=== PATIENT | female | born 1955 | race Caucasian/White ===

== ENCOUNTER 2018-09-04 12:29 | Observation (INO) | payer BC ==
[2018-09-04] VITALS (288 sets, daily range): BP systolic 155–157; BP diastolic 81–97; PULSE 84–88; TEMP 98.9–99.5; O2SAT 95–99
[~2018-09-04] VITALS: Ht 165.1 cm; Wt 59.7 kg
[~2018-09-04 12:29] MED LIST: ASPIRIN 32325 MG/TAB PO; ASPIRIN 81M81 MG/TA2 PO; CLARINEX 5MG5 MG PO; EPA FISH OIL1 SGL PO; FOSAMAX5 MG PO; INDERAL 10MG10 MG PO; MICROZIDE12.5 MG PO; MOTRIN 200200 MG/TAB PO; OSCAL 500 TAB500 MG PO; SYNTHROID0.05 MG/TA PO; TIAZAC120 MG PO; TOPROL XL 50MG50 MG PO; VASOTEC 10M10 MG/TAB PO; VITAMIN D31000 I1 PO; XYZAL5 MG PO; ZESTRIL 10MG10 MG PO
[2018-09-04 13:07] LABS: BASO % 0.1 % (0.0-2.0); EOS # 0.2 (0.0-0.7); EOS % 1.6 % (0-4.0); GRAN # 7.2 (1.4-6.5); GRAN % 67.3 % (42.2-75.2); HEMATOCRIT 38.6 % (37.0-47.0); HEMOGLOBIN 13.2 g/dl (12.5-16.0); LYMPH # 2.5 (1.2-3.4); LYMPH % 23.8 % (20.0-51.0); MEAN CELL VOLUME 94 fl (80.0-100.0); MEAN CORPUSCULAR HEMOGLOBIN 32 pg (27.0-31.0); MEAN CORPUSCULAR HGB CONC 34 g/dl (33.0-37.0); MONO # 0.7 (0.1-0.6); MONO % 6.7 % (1.7-9.3); PLATELET COUNT 307 K/mm3 (130-400)
[2018-09-04 13:11] LABS: PROTHROMBIN TIME 10.9 SECONDS (9.7-12.8)
[2018-09-04 13:16] LABS: ALANINE AMINOTRANSFERASE 44 U/L (9-52); ALBUMIN 4.4 gm/dL (3.5-5.0); ALKALINE PHOSPHATASE 109 U/L (50-136); ANION GAP 13 mmol/L (7-16); AST,SGOT 40 U/L (15-37); BILIRUBIN,TOTAL 0.4 mg/dL (0.0-1.0); BLOOD UREA NITROGEN 11 mg/dL (7-17); CALCIUM 9.6 mg/dL (8.4-10.2); CARBON DIOXIDE 30 mmol/L (22-30); CHLORIDE 98 mmol/L (98-107); CREATININE, serum 0.76 mg/dL (0.52-1.25); GLUCOSE 134 mg/dL (74-106); POTASSIUM 3.9 mmol/L (3.4-5.0); SODIUM 141 mmol/L (137-145); TOTAL PROTEIN 8.5 gm/dL (6.4-8.2)
[2018-09-04 13:29] LABS: TROPONIN-I < 0.012 ng/mL (0.000-0.034)
[2018-09-04] MEDS ORDERED: COZAAR100 MG PO (13:31)
[2018-09-04] MEDS ORDERED: MUCINEX 60600 MG/TA1 PO (13:35)
[2018-09-04 13:50] LABS: ACETAMINOPHEN < 10 ug/mL (10-30); ALCOHOL(ethanol),MEDICAL < 10 mg/dL; SALICYLATE < 1.0 mg/dL
[2018-09-04 17:38] LABS: COLLECTION METHOD CLEAN CATCH
[2018-09-04 17:45] LABS: PH 7 (5-8); SQUAMOUS EPITHELIAL 0-2 /hpf; URINE APPEARANCE Clear; URINE BACTERIA None Seen /hpf; URINE BILIRUBIN Negative (NEGATIVE); URINE BLOOD Negative (NEGATIVE); URINE COLOR Straw; URINE GLUCOSE Negative (NEGATIVE); URINE KETONE Negative (NEGATIVE); URINE LEUKOCYTE ESTERASE 1+ (NEGATIVE); URINE NITRATE Negative (NEGATIVE); URINE PROTEIN(semi-quant) Negative (NEGATIVE); URINE RBC 0-2 /hpf; URINE UROBILINOGEN Negative (NEGATIVE)
[2018-09-05] VITALS (443 sets, daily range): BP systolic 114–141; BP diastolic 61–91; PULSE 64–81; TEMP 97.6–99; O2SAT 92–99
[2018-09-05 05:33] LABS: BASO % 0.3 % (0.0-2.0); EOS # 0.2 (0.0-0.7); EOS % 2.4 % (0-4.0); GRAN # 4.5 (1.4-6.5); GRAN % 60.3 % (42.2-75.2); HEMOGLOBIN 12.3 g/dl (12.5-16.0); LYMPH # 2.1 (1.2-3.4); LYMPH % 28.4 % (20.0-51.0); MEAN CELL VOLUME 95 fl (80.0-100.0); MEAN CORPUSCULAR HEMOGLOBIN 32 pg (27.0-31.0); MEAN CORPUSCULAR HGB CONC 34 g/dl (33.0-37.0); MEAN PLATELET VOLUME 9.1 fl (7.4-10.4); MONO # 0.6 (0.1-0.6); MONO % 8.1 % (1.7-9.3); PLATELET COUNT 286 K/mm3 (130-400); RED BLOOD COUNT 3.83 M/mm3 (4.10-5.30)
[2018-09-05 05:37] LABS: HEMATOCRIT 36.4 % (37.0-47.0)
[2018-09-05 05:55] LABS: ALBUMIN 3.9 gm/dL (3.5-5.0); BILIRUBIN,TOTAL 0.5 mg/dL (0.0-1.0); CALCIUM 8.6 mg/dL (8.4-10.2); CHOLESTEROL RISK RATIO 4.1; CREATININE, serum 0.74 mg/dL (0.52-1.25); TOTAL PROTEIN 7.5 gm/dL (6.4-8.2)
[2018-09-06] VITALS: BP 124/76; PULSE 70; TEMP 98
[2018-09-06 04:00] VITALS: BP 114/60; PULSE 72; TEMP 98
[2018-09-06 08:42] VITALS: BP 134/91; PULSE 84
[2018-09-06] MEDS ORDERED: ELIQUIS 5MG PO (11:03)
[2018-09-06] MEDS ORDERED: ASPIRIN 81M81 MG/TA2 PO (11:04)
[2018-09-06] MEDS ORDERED: ZITHROMAX Z PA250 MG PO (11:04)
[2018-09-06 11:18] VITALS: BP 128/83; PULSE 68
== END 2018-09-06 13:10 | disposition home or self-care (01) ==
LOC: COL.ER 12:29 → ICU 15:24
PROVIDERS: Emergency Medicine; Physician Assistant
DX: R14.0 Abdominal distension (gaseous) (principal); R41.3 Other amnesia; R47.89 Other speech disturbances; I48.91 Unspecified atrial fibrillation; E03.9 Hypothyroidism, unspecified; I10 Essential (primary) hypertension; J06.9 Acute upper respiratory infection, unspecified; F32.9 Major depressive disorder, single episode, unspecified; J20.9 Acute bronchitis, unspecified; E06.3 Autoimmune thyroiditis; M35.00 Sjogren syndrome, unspecified; Z79.82 Long term (current) use of aspirin; Z90.710 Acquired absence of both cervix and uterus; Z90.49 Acquired absence of other specified parts of digestive tract; Z82.3 Family history of stroke; Z82.49 Family history of ischemic heart disease and other diseases of the circulatory system; Z88.2 Allergy status to sulfonamides
CPT/HCPCS: G0378; G9168-GN; G9169-GN; J2060

== ENCOUNTER → 2020-08-04 | Outpatient (CLI) | payer BC ==
[~2020-08-04] MED LIST changes: +COZAAR100 MG PO; +ELIQUIS 5MG PO; +MUCINEX 60600 MG/TA1 PO; +ZITHROMAX Z PA250 MG PO
== END ==
LOC: MC.RAD 16:01
DX: Z12.31 Encounter for screening mammogram for malignant neoplasm of breast (principal)

== ENCOUNTER → 2021-09-15 | Outpatient (CLI) | payer MEDICARE | LOC: COL.RAD 14:02 | DX: S79.8 Other specified injuries of hip and thigh (principal) ==

== ENCOUNTER → 2021-11-17 | Outpatient (CLI) | payer MEDICARE | LOC: MC.RAD 09:53 | DX: Z12.31 Encounter for screening mammogram for malignant neoplasm of breast (principal) ==

== ENCOUNTER 2022-02-04 10:52 | Day surgery (SDC) | payer MEDICARE ==
[~2022-02-04] VITALS: Ht 165.1 cm; Wt 57.7 kg
[2022-02-04 12:10] VITALS: BP 115/84; PULSE 81; TEMP 97.4
[2022-02-04] MEDS ORDERED: TIAZAC360 MG PO (12:34)
[2022-02-04] MEDS ORDERED: COZAAR100 MG PO (12:34)
[2022-02-04] MEDS ORDERED: TIROSINT50 MC1 PO (12:35)
[2022-02-04] MEDS ORDERED: COLACE 100100 MG/CAP PO (12:36)
[2022-02-04] MEDS ORDERED: K-DUR20 MEQ PO (12:36)
[2022-02-04] MEDS ORDERED: OMEGA-31 SGL PO (12:37)
[2022-02-04] MEDS ORDERED: CENTRUM SILVER1 TAB PO (12:37)
[2022-02-04] MEDS ORDERED: VITAMIN D31000 I1 PO (12:38)
[2022-02-04] MEDS ORDERED: FLONASEALLERGY NS (12:38)
[2022-02-04 14:35] VITALS: BP 124/79; PULSE 69; TEMP 97
--- NOTE | 2022-02-04 14:35 | NUR ---
Pt arrived from endo suite drowsy but oriented. Vitals obtained. Verbal report obtained. Pt requested a warm muffin and ice water to drink. Call teixeira is within reach. Will continue to monitor per intervals.
[2022-02-04 14:50] VITALS: BP 136/82; PULSE 62
--- NOTE | 2022-02-04 14:50 | NUR ---
Vitals obtained. The patient is tolerating her muffin well. Denies nausea. No vomiting. Call teixeira remains within reach.
[2022-02-04 15:05] VITALS: BP 146/85; PULSE 62
--- NOTE | 2022-02-04 15:05 | NUR ---
Vitals obtained. The patient expressed desire to be discharged.
--- NOTE | 2022-02-04 15:15 | NUR ---
IV discontinued. Catheter tip intact. Pressure bandage applied. No swelling or redness noted. DC instructions and educational material was reviewed with the patient, who verbalized understanding and signed the related paperwork. The patient denied having any questions or concerns.
--- NOTE | 2022-02-04 15:20 | NUR ---
The patient was dismissed from Endo via wheelchair by KEELCHI Silva to the patient entrence and transferred into the care of anish, who is present to drive. The patient has her DC packet in hand, along with her personal belongings.
== END 2022-02-04 15:30 | disposition home or self-care (01) ==
LOC: SDCO 10:52
DX: D12.0 Benign neoplasm of cecum (principal); D12.5 Benign neoplasm of sigmoid colon; K51.40 Inflammatory polyps of colon without complications; K59.00 Constipation, unspecified; R11.2 Nausea with vomiting, unspecified; R10.9 Unspecified abdominal pain; E06.3 Autoimmune thyroiditis; I10 Essential (primary) hypertension; D47.2 Monoclonal gammopathy; M35.00 Sjogren syndrome, unspecified; G47.33 Obstructive sleep apnea (adult) (pediatric); Z91.19 Patient's noncompliance with other medical treatment and regimen; Z79.82 Long term (current) use of aspirin; Z79.890 Hormone replacement therapy; Z79.899 Other long term (current) drug therapy
CPT/HCPCS: J2704; J7030

== ENCOUNTER → 2023-01-12 | Outpatient (CLI) | payer MEDICARE ==
[~2023-01-12] MED LIST changes: +CENTRUM SILVER1 TAB PO; +COLACE 100100 MG/CAP PO; +FLONASEALLERGY NS; +K-DUR20 MEQ PO; +OMEGA-31 SGL PO; +TIAZAC360 MG PO; +TIROSINT50 MC1 PO
== END ==
LOC: MC.RAD 07:25
DX: Z12.31 Encounter for screening mammogram for malignant neoplasm of breast (principal)

== ENCOUNTER → 2024-01-15 | Outpatient (CLI) | payer MEDICARE ==
[~2024-01-15] MED LIST changes: +ASPIRIN E.C. 8181 MG PO; +LOPRESSOR 225 MG/TAB PO; +MIRALAX PA17 GM/Dose PO
== END ==
LOC: MC.RAD 10:38
DX: Z12.31 Encounter for screening mammogram for malignant neoplasm of breast (principal)